=== PATIENT | female | born 1990 | race Caucasian/White ===

== ENCOUNTER 2019-05-26 15:38 | Outpatient (CLI) | payer OTHER, SELFPAY ==
--- NOTE | ~2019-05-26 | US_ITS ---
EXAMINATION: US OB /maternal detail DATE: 05/26/2019 16:39 INDICATION: Second trimester anatomic survey TECHNIQUE: Real-time ultrasound of the pelvis was performed. COMPARISON: None. FINDINGS: There is a single living fetus in transverse lie. The placenta is posterior and 1.8 cm from the inter nal cervical os. There appears to be a peripheral echogenic ridge of the placenta near the uterine fu ndus. heart rate is 150 beats per minute (bpm). cardiac activity and movement are noted. The amniotic fluid index is subjectively normal. There is a 9 mm x 5 mm choroid plexus cyst. The following anatomy was identified as normal: 4 chamber heart 3 vessel cord cord insertion kidneys urinary bladder stomach spine diaphragm ventricles cisterna magna cerebellum The following biometric data were obtained: Biparietal diameter (BPD): 4.1 cm; head circumference (HC): 14.8 cm; abdominal circumference (AC): 13 .3 cm; femur length (FL): 2.8 cm. These measurements are concordant. Estimated weight is 249 g +/- 37 g, which correlates with the 59th percentile when 10/24/2019 is used as estimated date of delivery. As single measurements, these parameters are each equal to the following estimated gestational ages w ith ranges of +/- 2 standard deviations: BPD: 18 weeks 5 days +/- 1 weeks 5 days. HC: 18 weeks 0 days +/- 1 weeks 1 days. AC: 18 weeks 6 days +/- 2 weeks 0 days. FL: 1 weeks 84 days +/- 1 weeks 6 days. estimated gestational age based solely on measurements from this exam is 18 weeks 4 days +/- 1 weeks 2 days. IMPRESSION: 1. Single living fetus in transverse lie. 2. Estimated weight is 249 g +/- 37 g, which correlates with the 59th percentile when 10/24/2019 is used as estimated date of delivery. 3. Low-lying placenta. 4. Choroid plexus cyst. Consider level two ultrasound. 5. Possible circumvallate placenta. Reviewed, dictated and finalized at location A. IMPRESSION: 1. Single living fetus in transverse lie. 2. Estimated weight is 249 g +/- 37 g, which correlates with the 59th per centile when 10/24/2019 is used as estimated date of delivery. 3. Low-lying placenta. 4. Choroid plexus cyst. Consider level two ultrasound. 5. Possible circumvallate placenta.
== END 2019-05-26 15:39 | disposition home or self-care (01) ==
LOC: ANHIMG 15:41
PROVIDERS: Visit Provider Obstetrics & Gynecology Gynecology
DX: Z36.89 Encounter for other specified antenatal screening (principal); O44.40 Low lying placenta NOS or without hemorrhage, unspecified trimester; Z3A.00 Weeks of gestation of pregnancy not specified; G93.0 Cerebral cysts
CPT/HCPCS: 76805

== ENCOUNTER 2019-06-05 14:03 | Emergency (ER) | payer OTHER, SELFPAY ==
[2019-06-05 14:08] VITALS: BP 128/69; PULSE 100; RESP 20; TEMP 37.4; O2SAT 92
--- NOTE | 2019-06-05 14:17 | ED.EAR ---
HPI - Ear Problem General Chief complaint: Ear Stated complaint: ear pain/pressure Time Seen by Provider: 06/05/19 14:15 Source: patient and RN notes reviewed Mode of arrival: ambulatory Limitations: no limitations History of Present Illness HPI Narrative: 28-year-old female who is 22 weeks presents with concern for right ear pain for 4 days. She reports she wears ear buds all day long at work. She denies any upper respiratory symptoms such as cough, shortness of breath, nasal congestion, rhinorrhea, sore throat. Denies fever. MD Complaint: ear pain Location: right ear Duration: constant Related Data Allergies Allergy/AdvReac Type Severity Reaction Status Date / Time No Known Allergies Allergy Verified 06/05/19 14:24 Review of Systems Review of Systems: Narrative: CONSTITUTIONAL: Denies malaise, chills, sweats, or fever. EYES: Denies visual changes, redness, or discharge. ENT: Reports rhinorrhea, congestion, sinus pain, and sore throat. Reports right ear pain CARDIOVASCULAR: Denies chest pain, palpitations, or edema. RESPIRATORY: Denies cough or dyspnea. GASTROINTESTINAL: Denies abdominal pain, nausea, vomiting, diarrhea SKIN: Denies rash or itching. MUSCULOSKELETAL: Denies myalgia. NEUROLOGIC: Denies headache. All systems reviewed & are unremarkable except as noted in HPI and below PMFSH Comments At time of signature, agree with nursing past medical, surgical, social and family history. There is no relevant family history pertinent to the presenting complaint Exam Narrative: Exam Narrative: GENERAL: Well-appearing, well-nourished, and in no acute distress. HEAD: Normocephalic EYES: PERRLA, conjunctivae clear ENT: Nares clear, turbinates pink, no discharge. Mucous membranes moist. TM pearly pena with sharp light reflex bilaterally; right auditory erythematous discharge, canal tragal tenderness. Oropharynx not erythematous without lesions. Tonsils not enlarged and without exudate, no drooling, no hoarseness, no trismus, uvula midline. NECK: Supple. No lymphadenopathy CHEST: Clear to auscultation, breath sounds equal. No wheezing, rhonchi, rales, or stridor. No respiratory distress, speaks in full sentences. HEART: Regular rate and rhythm. No murmur heard. SKIN: Warm, dry, no rash. NEURO: Alert and oriented x3. PSYCH: Normal mood and affect Course Course Emergency Course: Patient is aware of diagnosis, understands and agrees to treatment plan. Anticipatory guidance given. Patient agrees to follow-up as directed and is aware of reasons to seek care at the emergency department. Portions of this record may have been created with voice recognition software Vital Signs Vital signs: Vital Signs Temperature 99.4 F 06/05/19 14:08 Pulse Rate 100 06/05/19 14:08 Respiratory Rate 20 06/05/19 14:08 Blood Pressure 128/69 06/05/19 14:08 Pulse Oximetry 92 06/05/19 14:08 Temperature 99.4 F 06/05/19 14:08 Pulse Rate 100 06/05/19 14:08 Respiratory Rate 20 06/05/19 14:08 Blood Pressure 128/69 06/05/19 14:08 Pulse Oximetry 92 06/05/19 14:08 Reviewed. Medical Decision Making MDM Narrative Medical decision making narrative: Differential diagnosis considered: Strep pharyngitis, allergic rhinitis, upper respiratory tract infection, sinusitis, rhinosinusitis, nasopharyngitis. viral pharyngitis, otitis media, otitis externa, pneumonia, bronchitis, viral cough syndrome, viral syndrome, and influenza. Exam findings show no acute concerns or changes; patient is non-toxic appearing and is in no distress. Patient is appropriate for outpatient treatment and follow-up. Vital Signs Vital Signs: Vital Signs Temperature 99.4 F 06/05/19 14:08 Pulse Rate 100 06/05/19 14:08 Respiratory Rate 06/05/19 14:08 Blood Pressure 128/69 06/05/19 14:08 Pulse Oximetry 92 06/05/19 14:08 Temperature 99.4 F 06/05/19 14:08 Pulse Rate 100 06/05/19 14:08 Respiratory Rate 06/05/19 14:08
== END 2019-06-05 14:30 | disposition home or self-care (01) ==
PROVIDERS: Emergency Provider Nurse Practitioner
DX: O99.89 Other specified diseases and conditions complicating pregnancy, childbirth and the puerperium (principal); H60.501 Unspecified acute noninfective otitis externa, right ear; Z3A.22 22 weeks gestation of pregnancy
CPT/HCPCS: 99213; G0463

== ENCOUNTER 2019-10-02 06:55 | Outpatient (CLI) | payer OTHER, SELFPAY ==
[2019-10-02] VITALS (18 sets, daily range): BP systolic 105–119; BP diastolic 62–90; PULSE 65–87; O2SAT 99–100
[2019-10-02] MEDS: TERBUTALINE SULFATE 1 MG/ML VIAL 0.25 MG SUB-Q (07:35)
--- NOTE | 2019-10-02 13:53 | PM.PROC ---
Procedure Note - Detailed Date of procedure: 10/02/19 Pre-op diagnosis: External Version IUP 36 wks breech Post-op diagnosis: same Procedure performed: attempted external cephalic version bedside u/s NST Description of procedure: u/s done and christiana breech with breech deep set in pelvis given Terb attempted both directions to turn but unable to get breech out of pelvis and patient tolerated well NST post ordered Anesthesia: none Surgeon: Natalie Pulido MD Estimated blood loss (mL): 0 Drains: No Packing: No Complications: No immediate complications Condition: stable
== END 2019-10-02 08:55 | disposition home or self-care (01) ==
LOC: ANHOBOP 07:01 → ANHOBPP 07:04
PROVIDERS: Visit Provider Obstetrics & Gynecology Gynecology
DX: O32.1XX0 Maternal care for breech presentation, not applicable or unspecified (principal)
CPT/HCPCS: 59412; 99199; J3105

== ENCOUNTER 2019-10-15 12:47 | Outpatient (CLI) | payer OTHER, SELFPAY ==
[2019-10-15 13:40] LABS: Basophils Absolute Auto 0.1 K/mm3 (0.0-0.1); Basophils Percent Auto 0.5 % (0.2-1.2); Eosinophils Absolute Auto 0.3 K/mm3 (0-0.3); Hematocrit 38.7 % (37.0-47.0); Hemoglobin 12.8 g/dL (12.0-15.0); Immature Granulocyte Absolute 0.08 K/mm3 (0.00-0.031); Immature Granulocyte Percent A 0.6 % (0-0.5); Lymphocytes Absolute Auto 2.19 K/mm3 (0.9-3.2); Lymphocytes Percent Auto 16.6 % (18.3-44.2); Mean Corpuscular HGB Conc 33.1 g/dl (32-36); Mean Corpuscular Hemoglobin 29.8 pg (26-34); Mean Corpuscular Volume 90.2 fl (80-100); Mean Platelet Volume 10.2 fl (7.4-10.4); Monocytes Absolute Auto 0.9 K/mm3 (0.1-0.6); Monocytes Percent Auto 7.1 % (2.6-8.5); Neutrophils Absolute Auto 9.6 K/mm3 (1.3-6.7); Neutrophils Percent Auto 73.2 % (45.5-73.1); Platelet Count Result 327 k/mm3 (150-375); Red Blood Count 4.29 M/mm3 (4.2-5.4); Red Cell Distribution Width 13.8 % (11.5-14.5); White Blood Count 13.2 K/mm3 (4.5-10.0)
[2019-10-16 09:51] LABS: Rapid Plasma Reagin Non-Reactive (NonReactive)
== END 2019-10-15 12:48 | disposition home or self-care (01) ==
PROVIDERS: Visit Provider Obstetrics & Gynecology Gynecology
DX: Z34.93 Encounter for supervision of normal pregnancy, unspecified, third trimester (principal); Z3A.00 Weeks of gestation of pregnancy not specified
CPT/HCPCS: 36415; 85025; 86592; 86850; 86900; 86901

== ENCOUNTER 2019-10-17 07:08 | Inpatient (IN) | payer OTHER, SELFPAY ==
[2019-10-17] VITALS (64 sets, daily range): BP systolic 91–122; BP diastolic 56–106; PULSE 50–131; RESP 16–18; TEMP 36.1–36.8; O2SAT 81–100; BMI 29.4
--- NOTE | 2019-10-17 07:16 | LDADM ---
This patient, Jesika Lieberman, was admitted to Labor/Delivery/Recovery 119 on 10/17/19 at 07:08. Plans for primary section, pain management and were discussed with patient. Patient/family oriented to hospital policies and general routines including ID bracelet, bed and alarms, visiting hours, pain management, procedures, bathroom and other care routines, personal items, smoking policy, room service/diet and guest tray routines, security routines, and visiting hours. Patient/Family are encouraged to report perceived risks to care and to ask questions if they do not understand what they are told or what they should do. See OBIX for further documentation.
[2019-10-17] MEDS: LACTATED RINGERS 1,000 ML 125 ML IV CONT ×2 (07:27→08:46)
--- NOTE | 2019-10-17 07:56 | WPDANESEPPF ---
Anes - Initial Pre Proc Eval Procedure: Operation Date: 10/17/19 09:00 Proposed Procedures p Primary Section - Natalie Pulido MD Date/Time: 10/17/19 07:56 Surgeon: Natalie Pulido MD Pre Op Diagnosis: C Section Patient Data Age: 29 Gender: F Height: 5 ft 2 in Weight: 73 kg Last Vital Signs Pulse 70 10/17/19 07:46 BP 119/76 10/17/19 07:46 Allergies Allergy/AdvReac Type Severity Reaction Status Date / Time No Known Allergies Allergy Verified 10/07/19 08:48 Home Medications Medication Instructions Recorded Confirmed Type ciprofloxacin HCl 5 drop RIGHTEAR BID 7 Days #14 each 06/05/19 Rx metoclopramide HCl 10 mg PO Q6H PRN 06/05/19 06/05/19 History PNV cmb#95-ferrous fumarate-FA 1 tablet PO DAILY 09/24/19 09/24/19 History [] fluoxetine [Prozac] 40 mg PO DAILY 09/24/19 09/24/19 History Patient hx anesthesia problems: none Family hx anesthesia problems: none PMFSH Family History Family History Mother Thyroid disorder Sibling Heart murmur Social History Social History Smoking status: Former smoker Substance use: never Gender identity (if verbalized by the patient): Female Spiritual care concerns: No Anes - Eval Final PreProcedure Day of Procedure 10/17/19 07:56 Patient weight: overweight Heart: regular rate and rhythm Lungs: clear to auscultation Airway: Mallampati scale class II and special considerations poor opening Neurological: alert and oriented Last oral intake: >/= 8 hours ASA classification: II Emergent: no Anesthetic plan: proceed Anesthesia type and monitoring: regional spinal and standard monitoring Informed Consent: The patient's anesthetic plan and its attendant risks and benefits were discussed with the patient/family/POA. Questions were solicited and answers provided to the satisfaction of the patient/family/POA.
--- NOTE | 2019-10-17 09:22 | P.HP_ITS ---
H&P: HPI History of Present Illness Date/Time: 10/17/19 09:22 Chief complaint: C Section Narrative: Jesika Lieberman is a 29 year old female G1 at 39 wks here for primary csection for breech. Failed external version. complicated by GDMA1. labs O+; RPR -; HBSAg -; HIV -; Rubella Immune; GBS -. [facility] Past Medical History Medical History (Updated 10/17/19 @ 09:25 by Natalie Pulido MD) Anxiety Migraines Family History Family History Mother Thyroid disorder Sibling Heart murmur Social History Social History Smoking status: Former smoker Substance use: never Gender identity (if verbalized by the patient): Female Spiritual care concerns: No Meds Home Medications and Allergies Home Medications Medication Instructions Recorded Confirmed Type ciprofloxacin HCl 5 drop RIGHTEAR BID 7 Days #14 each 06/05/19 Rx metoclopramide HCl 10 mg PO Q6H PRN 06/05/19 06/05/19 History PNV cmb#95-ferrous fumarate-FA 1 tablet PO DAILY 09/24/19 09/24/19 History [] fluoxetine [Prozac] 40 mg PO DAILY 09/24/19 09/24/19 History Allergies Allergy/AdvReac Type Severity Reaction Status Date / Time No Known Allergies Allergy Verified 10/07/19 08:48 Vital Signs Vital Signs - 24 hr 10/17/19 07:46 Pulse Rate 70 Blood Pressure 119/76 Exam Const: General: healthy appearing and alert Orientation/consciousness: patient oriented x3 Resp: Effort & Inspection: normal respiratory effort Auscultation: clear to auscultation bilaterally Cardio: Rate: regular rate Rhythm: regular rhythm GI: GI Palp: Yes Soft to palpation, No Tenderness to palpation present (GI) and Yes Other GI palpation findings present (gravid-bedside u/s confirms breech) : External Female Exam: normal external appearance Speculum Exam - Vagina: normal appearance of the vagina and normal vaginal discharge Speculum Exam - Cervix: normal appearance of the cervix Bimanual exam- vagina & uterus: other (gravid) Bimanual Exam- Adnexa, other: normal adnexae and No adnexal tenderness Neuro: General: patient oriented x3 Assessment and Plan Assessment and plan (1) 39 weeks gestation of : Code(s): Z3A.39 - 39 weeks gestation of Status: Acute (2) Breech presentation: Code(s): O32.1XX0 - Maternal care for breech presentation, not applicable or unspecified Status: Acute Assessment and Plan: Plan to proceed with primary LTCS
[2019-10-17] MEDS: ceFAZolin 2 GM/D5W 50 ML 2 GM/50 ML BAG IVPB (09:46)
--- NOTE | 2019-10-17 10:38 | PM.PROC ---
Procedure Note - Detailed Date of procedure: 10/17/19 Pre-op diagnosis: C Section IUP 39 wks Breech-failed version GDMA1 Post-op diagnosis: same Procedure performed: The patient is taken to the operating room and placed in the dorsal supine position with a leftward tilt under spinal anesthesia. The patient is prepped and draped. Once anesthesia is deemed adequate a Pfannenstiel skin incision is made with a scalpel. The incision is carried down to the fascia which was nicked in the midline. The fascial incision is extended laterally using Ambrose scissors. [place] is are used to tent the fascia which was then dissected off using sharp and blunt dissection. The rectus muscles are in the midline and the peritoneum tented and entered. The incision is extended with blunt traction. The bladder blade is placed and the vesicouterine peritoneum grasped. Using Metzenbaum scissors the bladder flap is created laterally and then bluntly dissected the bladder blade is replaced. The lower uterine segment is incised in a transverse fashion with the scalpel. Membranes are ruptured with clear fluid noted. The incision is extended laterally using blunt traction. The infant's breech is grasped and the hips are delivered to the is rotated and delivered to the scapula. The right arm is splinted and delivered the is rotated and the left arm was splinted and delivered causing the head also to deliver spontaneously. The nuchal cord x2 is very tight and is reduced. The cord is clamped and cut and the infant handed to the waiting nursery nurse. Cord blood for gases and labs were drawn. The placenta is removed using manual traction. The uterus is cleared of all clots and debris and exteriorized. The uterine incision is closed using 0 Monocryl in a running lock fashion with the imbricating suture of the same. Two additional [id number] sutures of 0 Monocryl were required for hemostasis in the midline. The cul-de-sac is irrigated the uterus is returned to the abdomen the gutters are irrigated the incision was again inspected and 1 additional [id number] suture was required in the midline for hemostasis. Once hemostasis is obtained the fascia is closed using a 0 Vicryl in a running fashion. The subcutaneous tissues are irrigated and made hemostatic using Bovie cautery. The skin incision is closed using 4 0 Vicryl in a subcuticular fashion. Dermaflex was placed over the incision. Sponge, instrument, and needle counts are correct per the OR staff Anesthesia: spinal Surgeon: Natalie Pulido MD Estimated blood loss (mL): 570 Drains: Yes (venegas) Packing: No Pathology: none sent Complications: No immediate complications Condition: stable Disposition: PACU Findings: female in christiana breech presentation; nuchal cord x 2 tight; 9/9 Apgars; weight 6#2; normal appearing tubes, ovaries, and uterus
--- NOTE | 2019-10-17 10:45 | PM.OBDSVD ---
DS: Admitting Diagnosis Admitting Diagnosis Admitting Diagnosis: C Section IUP 39 wks Breech with prior failed version GDMA2 DS: Discharge Diagnosis Discharge Diagnosis (1) delivery delivered: Code(s): O82 - Encounter for delivery without indication Status: Acute (2) 39 weeks gestation of : Code(s): Z3A.39 - 39 weeks gestation of Status: Acute (3) Breech presentation: Code(s): O32.1XX0 - Maternal care for breech presentation, not applicable or unspecified Status: Acute (4) GDM, class A1: Code(s): O24.410 - Gestational diabetes mellitus in , diet controlled Status: Acute OB - DS: Summary OB Procedures : Ultrasound OB Procedures Intrapartum: low cervical, transverse OB Procedures: : None Peripartum Data Infant Delivery Method: Section Procedures: Procedures Operation Date: 10/17/19 09:00 <No data on this case meets the specified criteria> complications: none Status at Discharge Functional status at discharge: independent ambulation Overall status at discharge: patient is progressing back to baseline Time Spent with Patient Time attestation: Total time spent providing and/or coordinating discharge services: Discharge Plan Discharge Attending physician on discharge: Natalie Pulido Discharging Clinician: Natalie Pulido Anticipated Discharge Date/Time: 10/20/19 10:47 Patient Disposition: Home, Self-Care Activity: may shower, may drive after 2 weeks and pelvic rest Diet: regular Wound Care Instructions: incision open to air Patient Instructions: Antibiotic Form Stand Alone Forms: General Discharge Information Follow-up/Referrals: Natalie Pulido MD [Physician] - 1 Week Discharge Medications: New hydrocodone-acetaminophen 5-325 mg Tablet 1 tab PO Q3H PRN (Reason: Moderate Pain (4-6)) Qty: 20 RF: 0 Continued fluoxetine [Prozac] 40 mg Capsule 40 mg PO DAILY RF: 0 PNV cmb#95-ferrous fumarate-FA [] 28 mg iron- 800 mcg Tablet 1 tablet PO DAILY RF: 0 Date of admission: 10/17/19 07:08 Primary Care Provider: PHYSICIAN,[employer] MECH[employer]IC Admitting Provider: Natalie Pulido Attending physician on admission: Natalie Pulido Condition: Stable Health Concerns: Received DepoProvera 10/19/19 before dc home
[2019-10-17] MEDS: OXYTOCIN 30 UNITS/NS 500 ML 30 UNITS/500 ML BAG 125 UNITS IV CONT (10:56)
[2019-10-17] MEDS: KETOROLAC 30 MG/ML VIAL (*BKC) IV PUSH ×2 (12:04→18:53)
--- NOTE | 2019-10-17 13:17 | PC.NURSE ---
Patient transferred to post room #286 per stretcher from labor and delivery. Support person present. Oriented to unit, room, information board, rooming in, admission packet and security measures. Patient verbalizes understanding.
--- NOTE | 2019-10-17 14:10 | PC.NURSE ---
Consulted with patient, mother reports infant eagerly fed for first feeding. Reviewed feeding cues, frequencies, duration of feedings, feeding elimination flow sheet, and signs of adequate intake. Demonstrated stimulation techniques to wake for feeding. Assisted with to breast. Reviewed positioning/alignment in cross cradle, holding breast in U hold and guided asymmetrical latch on. was able to latch correctly. nursed eagerly, with steady draws and frequent swallowing noted. Reviewed signs of a correct latch, effective nursing and suck swallow ratio. was able to maintain latch without discomfort to mother. Nipple care reviewed. Suggested mother stimulate infant while feeding to keep awake and nursing effectively and to assist with maintaining deep latch. Demonstrated how to adjust latch more deeply while feeding. Instructed mother to call out for RN assistance if she is unable to latch for feeding or she has discomfort with nursing. Instructed feeding should be initiated three hours from start of last feeding or if feeding cues are noted before. Mother voiced understanding of information shared.
[2019-10-17] MEDS: DEXTROSE 5%/0.45% SOD CHL 1,000 ML 125 ML IV CONT (16:27)
[2019-10-17] MEDS: SIMETHICONE 80 MG TAB.CHEW PO ×2 (18:52→22:36)
[2019-10-18] MEDS: IBUPROFEN 600 MG TABLET PO ×4 (02:28→22:32)
[2019-10-18 05:10] VITALS: BP 103/67; PULSE 67; RESP 18; TEMP 36.3; O2SAT 100
[2019-10-18 05:12] LABS: Basophils Absolute Auto 0.1 K/mm3 (0.0-0.1); Basophils Percent Auto 0.5 % (0.2-1.2); Eosinophils Absolute Auto 0.3 K/mm3 (0-0.3); Eosinophils Percent Auto 1.4 % (0-4.4); Hematocrit 31.1 % (37.0-47.0); Hemoglobin 10.3 g/dL (12.0-15.0); Immature Granulocyte Absolute 0.12 K/mm3 (0.00-0.031); Immature Granulocyte Percent A 0.6 % (0-0.5); Lymphocytes Absolute Auto 2.21 K/mm3 (0.9-3.2); Lymphocytes Percent Auto 11.4 % (18.3-44.2); Mean Corpuscular HGB Conc 33.1 g/dl (32-36); Mean Corpuscular Volume 90.7 fl (80-100); Neutrophils Absolute Auto 15.7 K/mm3 (1.3-6.7); Neutrophils Percent Auto 81.1 % (45.5-73.1); Platelet Count Result 269 k/mm3 (150-375); Red Blood Count 3.43 M/mm3 (4.2-5.4); Red Cell Distribution Width 13.9 % (11.5-14.5); White Blood Count 19.4 K/mm3 (4.5-10.0)
[2019-10-18 07:45] VITALS: BP 109/64; PULSE 74; RESP 18; TEMP 36.2; O2SAT 100
[2019-10-18] MEDS: DOCUSATE SODIUM 100 MG CAPSULE PO ×2 (08:05→16:31)
[2019-10-18] MEDS: MULTIVIT/MIN/PREN/FOL AC/IRON TABLET 1 TAB PO (08:06)
[2019-10-18] MEDS: FLUoxetine HCL 20 MG CAPSULE 40 MG PO (08:06)
--- NOTE | 2019-10-18 08:15 | PM.OBPNVD ---
OB - PN: Subj Subjective Date/time seen: 10/18/19 08:15 Patient comments: no complaints and pain well controlled baby status: doing well OB - PN: Obj Data Labs CBC & Chem 7: 10/18/19 04:59 Labs: Laboratory Results - last 24 hr 10/18/19 04:59 WBC 19.4 H RBC 3.43 L Hgb 10.3 L Hct 31.1 L MCV 90.7 MCH 30.0 MCHC 33.1 RDW 13.9 Plt Count 269 MPV 10.0 Immature Gran % (Auto) 0.6 H Neut % (Auto) 81.1 H Lymph % (Auto) 11.[address] [place] % (Auto) 5.0 Eos % (Auto) 1.4 Baso % (Auto) 0.5 Lymph # (Auto) 2.21 [place] # (Auto) 1.0 H Eos # (Auto) 0.3 Baso # (Auto) 0.1 Abs Immat Gran (auto) 0.12 H Absolute Neuts (auto) 15.7 H Absolute Nucleated RBC 0.0 Nucleated RBC % 0.0 OB - PN A/P Plan day: 1 Plan: routine care Time Spent With Patient Time: Total time spent is greater than 50% in coordination of care (as documented) at patient's floor/unit and/or counseling patient: Exam GI: Other: Inc c/d/i : Bimanual exam- vagina & uterus: other (Uterus firm, nt @U)
--- NOTE | 2019-10-18 08:39 | WPDANLDNPN2 ---
Anes-Prog Note L&D-Neuraxial Date/Time: 10/18/19 08:39 Neuraxial medications: intrathecal PF morphine Opiod-related complaints: none Patient feedback: Patient satisfied with post-operative pain management.
--- NOTE | 2019-10-18 08:39 | WPDANLDPN2 ---
Anes-Prog Note L&D Date/Time: 10/18/19 08:39 Comfortable throughout: section Neuraxial method: spinal Epidural/Spinal procedure site: clean & non-tender Neuro status: Neuro function grossly intact. Cardiovascular status: normal Respiratory status: normal Airway patency: baseline Mental status: baseline Post-Op hydration status: normal Vital Signs: Last Vital Signs Temp 36.3 C L 10/18/19 05:10 Pulse 67 10/18/19 05:10 Resp 18 10/18/19 05:10 BP 103/67 10/18/19 05:10 Pulse Ox 100 10/18/19 05:10 I/O: Intake & Output 10/17/19 10/18/19 10/18/19 23:59 07:59 15:59 Intake Total 2000 300 Output Total 1250 1400 Balance 750 -1100 Patient feedback: Patient satisfied with anesthetic care.
[2019-10-18 19:50] VITALS: BP 116/61; PULSE 80; RESP 16; TEMP 36.4; O2SAT 100
[2019-10-19] MEDS: IBUPROFEN 600 MG TABLET PO (05:36)
[2019-10-19 08:15] VITALS: BP 106/70; PULSE 78; RESP 15; TEMP 36.7; O2SAT 100
[2019-10-19] MEDS: DOCUSATE SODIUM 100 MG CAPSULE PO (08:50)
[2019-10-19] MEDS: MULTIVIT/MIN/PREN/FOL AC/IRON TABLET 1 TAB PO (08:50)
--- NOTE | 2019-10-19 09:13 | P.PNOB_ITS ---
OB - PN: Subj Subjective Date/time seen: 10/19/19 09:13 Patient comments: no complaints and pain well controlled baby status: doing well and nursing well OB - PN: Obj Data Labs CBC & Chem 7: 10/18/19 04:59 OB - PN A/P Plan day: 2 Plan: routine care and discharge home Comments: Plans DepoProvera for bc Time Spent With Patient Time: Total time spent is greater than 50% in coordination of care (as docum ented) at patient's floor/unit and/or counseling patient: Exam GI: Other: inc c/d/i : Bimanual exam- vagina & uterus: other (Uterus firm, nt @U)
[2019-10-19] MEDS: FLUoxetine HCL 20 MG CAPSULE 40 MG PO (09:42)
[2019-10-19] MEDS: medroxyPROGESTERone ACETATE IM 150 MG/ML SYR IM (09:42)
--- NOTE | 2019-10-19 11:41 | PC.NURSE ---
Discharge instructions given to pt. NO questions or concerns at this time. Pt wheeled to awaiting truck by this RN. Pts belongings were taken to truck.
[2019-10-21 10:12] VITALS: BP 101/57; PULSE 86; RESP 16; TEMP 36.9; O2SAT 97
== END 2019-10-19 11:40 | disposition home or self-care (01) | DRG 788 ==
LOC: ANHLDR 10:49 → ANHOB2 15:28
PROVIDERS: Admitting Provider Obstetrics & Gynecology Gynecology; Visit Provider Obstetrics & Gynecology Gynecology
PROC: 10D00Z1 Extraction of Products of Conception, Low, Open Approach (ICD-10-PCS; CPT 59514; principal; 2019-10-17 09:00)
DX: O32.1XX0 Maternal care for breech presentation, not applicable or unspecified (principal); O69.1XX0 Labor and delivery complicated by cord around neck, with compression, not applicable or unspecified; Z3A.39 39 weeks gestation of pregnancy; Z37.0 Single live birth; O24.420 Gestational diabetes mellitus in childbirth, diet controlled; Z87.891 Personal history of nicotine dependence
CPT/HCPCS: 36415; 85025; A9270; J0131; J0690; J1050; J1885; J2274; J2370; J2405; J2590; J7120

== ENCOUNTER 2020-01-23 11:56 | Outpatient (CLI) | payer OTHER, SELFPAY ==
--- NOTE | ~2020-01-23 | US_ITS ---
EXAMINATION: US thyroid DATE: 01/23/2020 12:13 INDICATION: Thyroid nodule. TECHNIQUE: Multiple ultrasound images of the thyroid were obtained. COMPARISON: Ultrasound 06/03/2018 FINDINGS: The right thyroid lobe measures 4.8 x 1.8 x 2.0 cm. The left thyroid lobe measures 5.7 x 1.5 x 1.6 c m. Again seen is a 3 mm nodule in right thyroid lobe. Again seen are 4 mm and 3 mm nodules in left t hyroid lobe. IMPRESSION: 1. Small thyroid nodules, likely not clinically significant. No follow-up is needed. Reviewed, dictated and finalized at location A. FINISHER IMPRESSION: 1. Small thyroid nodules, likely not clinically significant. No follow-up is ne eded.
== END 2020-01-23 11:57 ==
PROVIDERS: Visit Provider Nurse Practitioner
DX: E04.2 Nontoxic multinodular goiter (principal)
CPT/HCPCS: 76536